=== PATIENT | male | born 1965 | race Caucasian/White ===

== ENCOUNTER 2020-05-09 16:40 | Emergency (ER) | payer OTHER ==
--- NOTE | 2020-05-09 17:21 | TELE ---
HPI Do you have fever,cough or shortness of breath?: Yes - General Reason For Visit: VIRTUAL VISIT History Source: Patient Exam Limitations: No Limitations - History of Present Illness 05/09/20 17:18 Patient is a 54-year-old male no symptom past medical history complaining of fever chills body aches for 3 days. Patient received Covid PCR and rapid testing and is pending results. Patient is calling for virtual visit today for new worsening shortness of breath as well as areas of ecchymosis versus raised areas of erythema without trauma. Unfortunately patient is unable to sign in for a video chat. At this point is the telephone call I stopped and referred the patient to the nearest emergency room mostly for the new onset of worse shortness of breath. I strongly encouraged the patient to be evaluated by an in person medical provider as well as to receive vital signs in triage. I offered to call an ambulance for the patient but he denied. At this time I signed off on the call urging the patient to seek medical attention immediately. Discharge Diagnosis at time of Disposition: Shortness of breath - Referrals - Patient Instructions - Discharge Disposition: HOME Condition at time of Disposition: Stable
== END 2020-05-09 17:22 | disposition home or self-care (01) ==
LOC: JVIRT 16:40
DX: R06.02 Shortness of breath (principal)
CPT/HCPCS: Q3014-GT